=== PATIENT | female | born 1945 | race Caucasian/White ===

== ENCOUNTER → 2018-05-10 | Outpatient (CLI) | payer MEDICARE, OTHER ==
[~2018-05-10] MED LIST: ADV100/50 INH; ALEN70TA43 PO; ASPI-1471 PO; ATENOLOL; CALC-965 PO; CETI10CA8 PO; ESTR42.5 VG; FLUT16SP19 NS; FURO-45 PO; FUROSEMIDE; GLUC100026 PO; IBUP1TAB90 PO; LACT1TAB19; LEVO25TA57 PO; LEVO50TA86 PO; LORATADINE; MONT10TA PO; OMEG-11 PO; POTA99TA6 PO; SALI10002 PO; SENN-203 PO; SIMV-49 PO; THYROID MED; VER40 PO
--- NOTE | 2018-05-10 15:19 | RADIOLOGY IMAGING REPORT ---
FACILITY: [facility] PATIENT NAME: CRISTIANE KINSEY : [id number] MR: [id number] V: [id number] EXAM DATE: [id number] ORDERING PHYSICIAN: PATRICE ALATORRE TECHNOLOGIST: Rocio Ford PROCEDURE:BILATERAL DIGITAL SCREENING MAMMOGRAM WITH CAD ASSISTED INTERPRETATION & 3D TOMOSYNTHESIS COMPARISON:Prior mammograms 05/07/2017, 05/06/2016, 05/01/2015. INDICATIONS:Screening FINDINGS: The breast tissue demonstrates scattered fibroglandular densities. There is no dominant mass, suspicious cluster of microcalcifications or persistent areas of architectural distortion. DIAGNOSTIC CATEGORY 1--NEGATIVE. RECOMMENDATIONS: ROUTINE MAMMOGRAM AND CLINICAL EVALUATION IN 1 YR. IMPRESSION: BIRADS 1: Negative. Dictated by: Zhen Orellana M.D. on 05/10/2018 at 14:59 Transcribed by: WALKER on 05/10/2018 at 15:10 Approved by: Zhen Orellana M.D. on 05/10/2018 at 15:17 [facility]
--- NOTE | 2018-05-10 18:31 | RADIOLOGY IMAGING REPORT ---
FACILITY: [facility] PATIENT NAME: Sarah Goff : 1945 MR: [id number] V: [id number] EXAM DATE: ORDERING PHYSICIAN: PATRICE ALATORRE TECHNOLOGIST: Location: [facility] Patient: Sarah Goff : 1945 Visit/Account:[id number] Date of Sevice: 05/10/2018 DEXA Scan 05/10/2018 11:30 AM HISTORY: Osteoporosis. Age-related osteoporosis without current pathologic fracture Comparison: DEXA scan from 06/16/2016. LUMBAR SPINE: The bone mineral density (BMD) measured from L1-L4 correlates with a Z-score of 1.2 and a T-score of -0.3 which is Normal as defined by the World Health Organization. The corresponding risk of fracture in the lumbar spine is Not increased compared with a young adult reference population. This value h as decreased by 0.2 % since the prior study. More than 5% change is considered significant. HIP: Bone mineral density (BMD) measured in the Left total hip region correlates with a Z-score -0.3 and a T-score of -1.8 which is moderately osteopenic as defined by the World Health Organization. The cor responding risk of fracture in the hip is increased 3-4 times compared with a young adult reference p opulation. This value has decreased by 0.5 % since the prior study. More than 5% change is considere d significant. Bone mineral density (BMD) measured in the Femoral Neck region measures 0.783 g/cm2. T-score is als o -1.8. IMPRESSION: 1. Lumbar spine: Normal. There has been No significant change in the bone mineral density since the previous exam. 2. Left Total Hip: Moderate osteopenia. There has been No significant change in the bone mineral de nsity since the previous exam. 3. Femoral Neck: Bone Mineral Density is 0.783 g/cm2. Moderate osteopenia. The next DEXA scan of this patient should include the following sites: L1-L4 and the left hip. FRAX? WHO Fracture Risk Assessment Tool link: <http://www.shef.ac.uk/FRAX/tool.jsp?locationValue=9> PLEASE NOTE: 1) The World Health Organization defines low BMD as follows: T-score Normal > -1 Osteopenia < -1 and > -2.5 Osteoporosis < -2.5 without fractures Established osteoporosis < -2.5 with fractures 2) In general, you may wish to consider: Diagnosis Treatment Follow-up DEXA Normal BMD Prevention 2-3 years Osteopenia Prevention/therapy 1-2 years Osteoporosis Therapy Yearly 3) Fracture risk estimated from the T-score is more accurate for vertebral fractures (often spontane ous) than for hip fractures. Report Dictated By: Walt Aranda MD at 05/10/2018 6:26 PM Report E-Signed By: Walt Aranda MD at 05/10/2018 6:28 PM WSN:[id number]
== END ==
LOC: RAD 03:07
PROVIDERS: ATTEND Nurse Practitioner Family
DX: Z12.31 Encounter for screening mammogram for malignant neoplasm of breast (principal); M85.80 Other specified disorders of bone density and structure, unspecified site
CPT/HCPCS: 77063; 77067; 77080

== ENCOUNTER → 2018-05-10 | Outpatient (CLI) | payer MEDICARE, OTHER | LOC: MAMO 03:06 | PROVIDERS: ATTEND Student in an Organized Health Care Education/Training Program | DX: Z02.9 Encounter for administrative examinations, unspecified (principal) ==

== ENCOUNTER 2018-05-18 00:30 | Day surgery (SDC) | payer MEDICARE, OTHER ==
[~2018-05-18] VITALS: Ht 157.5 cm; Wt 70.3 kg
[2018-05-18] MEDS ORDERED: NORMOSOL R SOLN(*) 1000 ML BAG 1,000 ML IV PRN (07:10)
[2018-05-18] MEDS ORDERED: LIDOCAINE/SOD BICARB 8.4% SYR ID ONE (07:10)
[2018-05-18] MEDS ORDERED: PROPOFOL EMUL(*) 10MG/ML 20 ML 40 ML ONE (07:11)
[2018-05-18 08:31] VITALS: BP 109/73
[2018-05-18 10:27] VITALS: BP 78/41
[2018-05-18 10:30] VITALS: BP 81/48
--- NOTE | 2018-05-18 10:32 | Short(Outpt) Discharge Summary ---
Discharge Summary Reason for Hosp/Final Diag: (1) Family history of colorectal cancer Hospital Course & Plan: Colonoscopy with polypectomy x3 completed without problems. Departure Discharge to: Home, Self Care Discharge Instructions Home Meds Reported Medications Cetirizine Hcl (ZYRTEC) 10 Mg Capsule, 10 MG PO QDAY, CAPSULE 04/20/18 Fluticasone Prop 50 Mcg Ns (FLONASE 50 MCG NS) 16 Gm [place].susp, 1 SPRAY NS PRN, BOT 04/20/18 Furosemide (FUROSEMIDE) 20 Mg Tablet, 0.5 MG PO PRN, TAB 04/20/18 Alendronate Sodium (FOSAMAX) 70 Mg Tablet, 70 MG PO QWK, TAB 04/20/18 Verapamil Hcl (VERAPAMIL HCL) 40 Mg Tab, 40 MG PO BID, TAB 04/20/18 Estrogens, Conjugated (Premarin) 0.625 Mg/Gram Cream.appl, 0.625 MG VG 2XW 04/20/18 Levothyroxine Sodium (LEVOTHYROXINE SODIUM) 50 Mcg Tablet, 50 MCG PO QDAY, TAB 04/20/18 Montelukast Sodium (SINGULAIR) 10 Mg Tablet, 1 TAB PO QDAY, TAB 04/20/18 Simvastatin (SIMVASTATIN) 20 Mg Tablet, 20 MG PO QDAY, TAB 04/20/18 Potassium Gluconate (POTASSIUM) Unknown Strength Tablet, 44.5 MG PO PRN ONLY TAKES WHEN SHE TAKES THE FUROSEMIDE 04/20/18 Aspirin (ASPIR 81) 81 Mg Tablet.dr, 81 MG PO QDAY, TAB 04/20/18 Saliva Substitution Combo No.9 (Biotene) Unknown Strength Mouthwash, 00652 MG PO QDAY 04/20/18 Calcium Carbonate/Vitamin D3 (CALCIUM 1,000 + D3 CAPLET) 1 Each Tablet, 1 EACH PO DAILY 04/20/18 Glucosamine Sulfate 2KCL (GLUCOSAMINE) 1,000 Mg Tablet, 1000 MG PO QDAY 04/20/18 [place]-3 Fatty Acids/Fish Oil (FISH OIL 1,000 MG CAPSULE) 1 Each Capsule, 1 EACH PO DAILY, CAPSULE 04/20/18 Sennosides (SENNOSIDES) Unknown Strength Tablet, 50 MG PO QDAY 04/20/18 Ibuprofen/Diphenhydramine Cit (ADVIL PM CAPLET) 1 Each Tablet, 0.5 EACH PO QHS 04/20/18 Discontinued Reported Medications Levothyroxine Sodium (SYNTHROID) Unknown Strength Tablet, PO QDAY 04/20/18 Lactobacillus Acidophilus (Acidophilus) Unknown Strength Tablet 04/20/18 Diet: Regular Activity: As Tolerated Special Instructions: Your colonoscopy was completed without problems and your prep was excellent (Good Job!!). I removed 3 small polyps from your colon and they were sent to pathology. My office will call you in the next week to let you know what the polyps are and when your next colonoscopy should be (either 5 or 10 years) depending on pathology results. BROOKE FAUST MD May 18, 2018 10:31
[2018-05-18 10:45] VITALS: BP 111/54
[2018-05-18 11:10] VITALS: BP 136/78
[2018-05-18 11:12] VITALS: BP 137/79
== END 2018-05-18 11:40 | disposition home or self-care (01) ==
LOC: OR 00:30
PROVIDERS: ATTEND Surgery
DX: Z12.11 Encounter for screening for malignant neoplasm of colon (principal); D12.0 Benign neoplasm of cecum; D12.3 Benign neoplasm of transverse colon
CPT/HCPCS: 00811; 45380; 88305; J2704